=== PATIENT | male | born 1985 | race African-American/Black ===

== ENCOUNTER 2023-04-19 20:14 | Emergency (ER) | payer OTHER ==
[~2023-04-19] VITALS: Ht 175.3 cm; Wt 84.6 kg
[2023-04-19 20:29] VITALS: BP 132/87; PULSE 89; RESP 18; TEMP 98.7; O2SAT 100
== END 2023-04-19 22:46 | disposition left against medical advice (07) ==
LOC: ER 20:14
DX: R07.0 Pain in throat (principal)
CPT/HCPCS: 99281